=== PATIENT | female | born 1950 | race Caucasian/White ===

== ENCOUNTER 2025-09-18 09:02 | Emergency (ER) | payer MEDICARE, SELFPAY ==
--- NOTE | ~2025-09-18 | CT_ITS ---
CT abdomen pelvis w con Clinical History: vomiting . Comparison: None Technique: Axial images lung bases to symphysis pubis IV contrast information not listed in PACS Coronal, sagittal reformats CT images acquired with automatic exposure control for dose reduction DLP: 258 mGy-cm Findings: Lung bases: Atelectasis. Visualized heart and pericardium: Unremarkable. Liver: Enlarged. Steatosis. Gallbladder: Unremarkable. Spleen: Unremarkable. Pancreas: Unremarkable. Adrenal glands: Small probable adenoma right side. Kidneys: Right kidney- No hydronephrosis. No renal stones. Left kidney- No hydronephrosis. No renal stones. Distal esophagus/stomach: Apparent gastric antral wall thickening but under distended. Small bowel loops: Normal caliber and wall thickness. Colon: Diverticula. Apparent wall thickening ascending loops but under distended. Appendix not seen. Nodes: No enlarged nodes. Peritoneum: No ascites. No free air. Urinary bladder: Unremarkable. Uterus: Unremarkable. Adnexa: No masses. Bones: No acute bony abnormality. Soft tissues: Unremarkable. Aorta: No aneurysm or dissection. IVC: Unremarkable. Main portal vein/SMV/splenic vein: Patent. IMPRESSION: 1. Gastric antritis not excluded. 2. Colitis ascending loops not excluded. 3. No other acute abnormality. Reviewed, dictated and finalized at location R.
[2025-09-18 08:58] VITALS: BP 110/80; PULSE 67; RESP 14; O2SAT 92
[2025-09-18] MEDS: ONDANSETRON INJ 4 MG/2 ML VIAL IV PUSH (09:41)
[2025-09-18] MEDS: SODIUM CHLORIDE 0.9% IV 1,000 ML 999 ML IV CONT (09:42)
[2025-09-18 09:53] VITALS: BP 111/61; PULSE 84; RESP 15; TEMP 36.4; O2SAT 97
--- OUTSIDE RECORDS SUMMARY | 2025-09-18 10:00 | XMS_ITS | Clinical Summary ---
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 [address] [address] Basophil abs 0.03 0.00 - 0.10 K/cumm [facility] Comment:Testing performed by : [address] [address] Neutrophil pct 36.6 % [facility] Comment: Interpretive Data Percent cell count reference ranges are not reported, since discordance with absolute values may lead to misinterpretation of CBC data. Current Interpretive Data was last revised on 2018. Testing performed by: [address] [address] Imm gran pct 0.0 % [facility] Comment: Interpretive Data Percent cell count reference ranges are not reported, since discordance with absolute values may lead to misinterpretation of CBC data. Current Interpretive Data was last revised on 2018. Testing performed by: [address] [address] Lymphocyte pct 47.2 % [facility] Comment: Interpretive Data Percent cell count reference ranges are not reported, since discordance with absolute values may lead to misinterpretation of CBC data. Current Interpretive Data was last revised on 2018. Testing performed by: [address] [address] Monocyte pct 9.3 % BHAVIK Comment: Interpretive Data Percent cell count reference ranges are not reported, since discordance with absolute values may lead to misinterpretation of CBC data. Current Interpretive Data was last revised on 2018. Testing performed by: [address] [address] Eosinophil pct 6.1 % BHAVIK GAUTHIER Comment: Interpretive Data Percent cell count reference ranges are not reported, since discordance with absolute values may lead to misinterpretation of CBC data. Current Interpretive Data was last revised on 2018. Testing performed by: [address] [address] Basophil pct 0.8 % BHAVIK GAUTHIER Comment: Interpretive Data Percent cell count reference ranges are not reported, since discordance with absolute values may lead to misinterpretation of CBC data. Current Interpretive Data was last revised on 2018. Testing performed by: [address] [address] Blood 08/13/2025 7:05 PM CDT 08/13/2025 7:08 PM CDT us Julius Orr MD LAB BLOOD ORDERABLES F inal Result [facility] [address] [facility] Department [place] [address] * (ABNORMAL) CBC with auto differential (08/13/2025 7:05 PM CDT) WBC 3.77(L) 3.80 - 9.90 K/cumm Comment:Testing performed by : [address] [address] Hgb 12.3 11.9 - 15.5 g/dL BHAVIK GAUTHIER Comment:Testing performed by : [address] [address] Hct 36.9 35.6 - 45.5 % BHAVIK GAUTHIER Comment:Testing performed by : [address] [address] Plt 225 150 - 400 K/cumm BHAVIK GAUTHIER Comment:Testing performed by : [address] [address] MPV 9.4 9.1 - 12.3 fL BHAVIK GAUTHIER Comment:Testing performed by : [address] [address] RBC 4.36 3.90 - 5.20 M/cumm BHAVIK GAUTHIER Comment:Testing performed by : [address] [address] MCV 84.6 81.3 - 96.4 fL BHAVIK Comment:Testing performed by : [address] [address] MCH 28.2 27.1 - 33.3 pg BHAVIK Comment:Testing performed by : [address] [address] MCHC 33.3 32.3 - 35.7 g/dL BHAVIK Comment:Testing performed by : [address] [address] RDW CV 12.8 11.1 - 14.9 % BHAVIK Comment:Testing performed by : [address] [address] RDW SD 38.9 35.7 - 48.1 fL BHAVIK Comment:Testing performed by : [address] [address] NRBC abs 0.00 0.00 - 0.01 K/cumm BHAVIK Comment:Testing performed by : [address] [address] Blood 08/13/2025 7:05 PM CDT 08/13/2025 7:08 PM CDT us Julius Orr MD LAB BLOOD ORDERABLES F inal Result [facility] [address] [facility] Department of Laboratories [place], [place] [id number] * Comprehensive metabolic panel (08/13/2025 7:05 PM CDT) Sodium 142 135 - 145 mmol/L Comment:Testing performed by : [address], [place]., [address] Potassium, pl 3.5 3.3 - 4.9 mmol/L [facility] Comment: Hemolyzed; Potassium value may be falsely elevated by as much as 1.0 mmol/L. Suggest redraw and reanalysis. Testing performed by: [address], [place]., [address] Chloride 106 97 - 110 mmol/L [facility] Comment:Testing performed by : [address], [place]., [address] CO2 24 22 - 32 mmol/L [facility] Comment:Testing performed by : [address], [place]., [address] Anion gap 12 2 - 15 mmol/L [facility] Comment:Testing performed by : [address], [place]., [address] BUN 12 6 - 25 mg/dL [facility] Comment:Testing performed by : [address], [place]., [address] Creatinine 0.86 0.60 - 1.10 mg/dL [facility] Comment:Testing performed by : [address], [place]., [address] Glucose 94 70 - 199 mg/dL [facility] Comment: Interpretive Data Fasting glucose >/= 126 mg/dl is diagnostic for diabetes. Fasting is defined as no caloric intake for at least 8 hours. Fasting glucose between 100 mg/dl to 125 mg/dl is diagnostic of prediabetes. In a patient with classic symptoms of hyperglycemia or hyperglycemic crisis, a random glucose >/= 200 mg/dl is diagnostic for diabetes. In the absence of unequivocal hyperglycemia, results should be confirmed by repeat testing. The classification and Diagnosis of Diabetes Diabetes Care 202; 46: S19-S40. Current interpretive data was last revised 2022. Testing performed by: [address], [place]., [address] Calcium 9.5 8.5 - 10.3 mg/dL [facility] Comment:Testing performed by : [address], [place]., [address] Bilirubin, total 0.4 0.1 - 1.2 mg/dL BHAVIK Comment:Testing performed by : [facility], [address] [place] [address]., [address] Protein, pl 7.1 6.5 - 8.5 g/dL BHAVIK Comment:Testing performed by : [address] [address] Albumin 4.2 3.5 - 5.0 g/dL BHAVIK Comment:Testing performed by : [address] [address] Alk phos 75 40 - 130 Units/L BHAVIK Comment:Testing performed by : [address], [address] ALT 9 7 - 45 Units/L BHAVIK Comment:Testing performed by : [address] [address] AST 21 10 - 45 Units/L BHAVIK Comment: Hemolyzed; result may be falsely elevated Testing performed by: [address] [address] Blood 08/13/2025 7:05 PM CDT 08/13/2025 7:08 PM CDT us Julius Orr MD LAB BLOOD ORDERABLES F inal Result [facility] [address] [facility] Department of Laboratories [place], [place] [id number] * Troponin T high-sensitivity 6-hour (07/17/2025 5:15 AM CDT) Trop T hs <6 <=14 ng/L Comment: Interpretive Data For further hscTnT resources including the diagnostic algorithm and an aid in interpretation, copy and paste this link: https://nrl.testcatalog.org/show/hsTrop Current Interpretive Data last revised 2020. Trop T hs delta 0 ng/L BHAVIK Trop T hs interp Insignificant [facility] Blood 07/17/2025 5:15 AM CDT 07/17/2025 5:29 AM CDT Theodore Oswald DO LAB BLOOD ORDERABLES Final Res ult Performing Organization Address [facility] de Phone Number BHAVIK [address] [place] [address] * eGFR (07/17/2025 5:15 AM CDT) Pathologist [facility] eGFR 90 >=60 mL/min/1. 73 m2 Comment: Interpretive Data Reference Interval Normal >/= 90 mL/min/1.73m2 Mildly decreased* 60 - 89 mL/min/1.73m2 Mildly to moderately decreased 45 - 59 mL/min/1.73m2 Moderately to severely decreased 30 - 44 mL/min/1.73m2 Severely decreased 15 - 29 mL/min/1.73m2 Kidney Failure < 15 mL/min/1.73m2 *Relative to young adult level Estimated glomerular filtration rate is determined by the 2020 CKD-EPI equation recommended by the National Kidney Foundation (A Unifying Approach to GFR Estimation: Recommendations of the NKF-ASK Task Force on Reassessing the Inclusion of Race in Diagnosing Kidney Disease, JASN 2020). The CKD-EPI equation should not be used for patients with unstable renal function and has not been validated in children and those over 70. Current interpretive data was last reviewed 2021. Blood 07/17/2025 5:15 AM CDT 07/17/2025 5:29 AM CDT us Henrik Booth MD LAB BLOOD ORDERABLES Final Res ult Performing Organization Address [facility] Co de Phone Number BHAVIK [address] Department [place] [address] * (ABNORMAL) CBC without differential (07/17/2025 5:15 AM CDT) [facility] WBC 3.72(L) 3.80 - 9.90 K/cumm Hgb 12.5 11.9 - 15.5 g/dL [facility] Hct 38.0 35.6 - 45.5 % [facility] Plt 171 150 - 400 K/cumm [facility] MPV 9.8 9.1 - 12.3 fL [facility] RBC 4.30 3.90 - 5.20 M/cumm [facility] MCV 88.4 81.3 - 96.4 fL [facility] MCH 29.1 27.1 - 33.3 pg [facility] MCHC 32.9 32.3 - 35.7 g/dL [facility] RDW CV 13.2 11.1 - 14.9 % [facility] RDW SD 42.5 35.7 - 48.1 fL [facility] NRBC abs 0.00 0.00 - 0.01 K/cumm [facility] Blood 07/17/2025 5:15 AM CDT 07/17/2025 5:29 AM CDT us Henrik Booth MD LAB BLOOD ORDERABLES Final Res ult [facility] [address] [facility] Department [place] [address] * Basic metabolic panel (07/17/2025 5:15 AM CDT) Sodium 141 135 - 145 mmol/L Potassium, pl 3.7 3.3 - 4.9 mmol/L [facility] Chloride 109 97 - 110 mmol/L [facility] CO2 23 22 - 32 mmol/L [facility] Anion gap 9 2 - 15 mmol/L [facility] BUN 11 6 - 25 mg/dL [facility] Creatinine 0.69 0.60 - 1.10 mg/dL [facility] Glucose 94 70 - 199 mg/dL [facility] Comment: Interpretive Data Fasting glucose >/= 126 mg/dl is diagnostic for diabetes. Fasting is defined as no caloric intake for at least 8 hours. Fasting glucose between 100 mg/dl to 125 mg/dl is diagnostic of prediabetes. In a patient with classic symptoms of hyperglycemia or hyperglycemic crisis, a random glucose >/= 200 mg/dl is diagnostic for diabetes. In the absence of unequivocal hyperglycemia, results should be confirmed by repeat testing. The classification and Diagnosis of Diabetes Diabetes Care 2021; 46: S19-S40. Current interpretive data was last revised 2022. Calcium 9.0 8.5 - 10.3 mg/dL [facility] Blood 07/17/2025 5:15 AM CDT 07/17/2025 5:29 AM CDT Henrik Booth MD LAB BLOOD ORDERABLES Final Res ult Performing Organization Address [facility] Co de Phone Number [address] [address] * Troponin T high-sensitivity 4-hour (07/17/2025 3:42 AM CDT) Trop T hs <6 <=14 ng/L Comment: Interpretive Data For further hscTnT resources including the diagnostic algorithm and an aid in interpretation, copy and paste this link: https://nrl.[email or web address]/show/[email or web address] Current Interpretive Data last revised 2020. Trop T hs delta 0 ng/L [facility] Trop T hs interp Insignificant [facility] Blood 07/17/2025 3:42 AM CDT 07/17/2025 3:51 AM CDT Theodore Oswald DO LAB BLOOD ORDERABLES Final Res ult Performing Organization Address [facility] de Phone Number [address] [address] * Troponin T high-sensitivity 2-hour (07/17/2025 1:36 AM CDT) Trop T hs <6 <=14 ng/L Comment: Interpretive Data For further hscTnT resources including the diagnostic algorithm and an aid in interpretation, copy and paste this link: https://nrl.[email or web address]/show/[email or web address] Current Interpretive Data last revised 2020. Trop T hs delta 0 ng/L [facility] Trop T hs interp Insignificant [facility] Blood 07/17/2025 1:36 AM CDT 07/17/2025 1:37 AM CDT Theodore Oswald DO LAB BLOOD ORDERABLES Final Res ult Performing Organization Address [facility] de Phone Number BHAVIK [address] [address] * (ABNORMAL) Urinalysis reflex to microscopic and culture Urine (07/16/2025 11:58 PM CDT) Color, ur Yellow Yellow Clarity, ur Clear Clear [facility] Specific gravity, ur 1.017 1.003 - 1.030 [facility] pH, urine 7.0 [facility] Comment: Interpretive Data U rine pH is affected by diet, medications, systemic acid-base disturbances, and renal tubular function. pH may affect urinary stone formation. For example, urine pH below 6.0 may help reduce the tendency for calcium phosphate stones and pH greater than 6.0 may reduce the tendency for uric acid stone formation. Source: [facility] Current Interpretive Data was last revised on 2017 Protein, ur ql Negative Negative [facility] Glucose, ur ql Negative Negative [facility] Ketones, ur Trace Negative [facility] Bilirubin, ur Negative Negative [facility] Blood, ur Negative Negative [facility] Urobilinogen, ur 2.0(A) <2.0 mg/dL [facility] Nitrite, ur Negative Negative [facility] Leukocyte esterase, ur Negative Negative [facility] UA reflex comment Reflex conditions for microscopic UA and culture not met. [facility] Urine 07/16/2025 11:5 8 PM CDT 07/17/2025 12:01 AM CDT [facility] - GENERAL ORD ERABLES Final Result Performing Organization Address [facility] Co de Phone Number BHAVIK [facility] [place] [address] * Troponin T high-sensitivity series (baseline, 2hr, 4hr, 6hr) (07/16/2025 11:31 PM CDT) Trop T hs <6 <=14 ng/L Comment: Interpretive Data For further hscTnT resources including the diagnostic algorithm and an aid in interpretation, copy and paste this link: https://nrl.testcatalog.org/show/hsTrop Current Interpretive Data last revised 2020. Blood 07/16/2025 11:3 1 PM CDT 07/16/2025 11:34 PM CDT Theodore Oswald DO LAB BLOOD ORDERABLES Final Res ult Performing Organization Address [facility]/ZIP Co de Phone Number BHAVIK [address] [place] [address] * Influenza A/B, RSV, and COVID-19 PCR Nasopharyngeal (07/16/2025 11:31 PM CDT) Pathologist [facility] COVID-19 RNA Negative Negative Influenza A RNA Negative Negative [facility] Influenza B RNA Negative Negative [facility] RSV RNA Negative Negative [facility] Comment: Interpretive data: Testing performed by [facility]. This test is performed using the [employer] Xpert Xpress CoV-2/Flu/RSV plus assay. This is a multiplex, real-time reverse transcriptase PCR assay intended for the qualitative detection of nucleic acid from SARS-CoV-2, influenza A, influenza B, and respiratory syncytial virus. This assay has been cleared by the [place] Food and Drug administration. The performance characteristics have been verified by the [facility]. Results must be considered in the clinical context, and a negative result does not rule out infection. Interpretive Data last revised 2023 Nasopharyngeal 07/16/2025 11 :31 PM CDT 07/16/2025 11:34 PM CDT Narrative [facility] - 07/17/2025 12:18 AM CDT Is the Patient experiencing symptoms consistent with COVID?->Yes Theodore Oswald DO LAB MICROBIOLOGY - GENERAL ORD ERABLES Final Result Performing Organization Address [facility]/ZIP Co de Phone Number [place] [id number] [facility] [address] [place] [address] * XR Chest 1 View (07/16/2025 10:54 PM CDT) Anatomical Region Laterality Modality Body, Chest N/A Computed Radiogr aphy 07/16/2025 11:3 1 PM CDT Narrative 07/16/2025 11:31 PM CDT EXAM DESCRIPTION: XR CHEST 1 VIEW REASON FOR STUDY: Mental status change, unknown cause BIBEMS from home for Left facial droop and altered mental status. LKW is 1600 today. Upon arrival, pt is A1-2, normally x4, known case of alzheimer and is on new medication Seroquel wherein she took her second dose [employer]. TECHNIQUE: Single radiographic view(s) of the chest. COMPARISON: None FINDINGS: LUNGS: No focal opacity, pleural effusion, or pneumothorax. HEART/MEDIASTINUM: Cardiac silhouette normal in size. Mediastinal and hilar contours appear normal. LINES/TUBES: None. BONES: No acute osseous abnormality. IMPRESSION: No acute cardiopulmonary abnormality. THIS IS AN ELECTRONICALLY VERIFIED FINAL REPORT 07/16/2025 11:31 PM - Electronically signed by Gregorio Dobbs M.D. KH T: Report ID: [id number] Reading Location: [id number] Procedure Note Gregorio Dobbs MD - 07/16/2025 EXAM DESCRIPTION: XR CHEST 1 VIEW REASON FOR STUDY: Mental status change, unknown cause BIBEMS from home for Left facial droop and altered mental status. LKWis 1600 today. Upon arrival, pt is A1-2, normally x4, known case of alzheimer and is on new medication Seroquel wherein she took her seconddose [employer]. TECHNIQUE: Single radiographic view(s) of the chest. COMPARISON: None FINDINGS: LUNGS: No focal opacity, pleural effusion, or pneumothorax. HEART/MEDIASTINUM: Cardiac silhouette normal in size. Mediastinal andhilar contours appear normal. LINES/TUBES: None. BONES: No acute osseous abnormality. IMPRESSION: No acute cardiopulmonary abnormality. THIS IS AN ELECTRONICALLY VERIFIED FINAL REPORT 07/16/2025 11:31 PM - Electronically signed by Gregorio Dobbs M.D. KH T: Report ID: [id number] Reading Location: [id number] us Theodore Slowik DO IMG XR PROCEDURES Final Result * ECG 12 lead (07/16/2025 10:35 PM CDT) Ventricular Rate EKG/Min 66 BPM [facility] Atrial Rate 66 BPM [facility] CO-Interval (MSEC) 150 ms [facility] QRS-Interval (MSEC) 86 ms [facility] QT-Interval (MSEC) 430 ms [facility] QTc 450 ms [facility] P [place] 58 degrees [facility] R [place] 36 degrees [facility] T [place] 20 degrees [facility] Diagnosis Normal sinus rhythm with sinus arrhythmia Possible Left atrial enlargement Borderline ECG No previous ECGs available Confirmed by HENRIK MCKEON M.D. ([id number]) on 07/21/2025 3:03:36 PM [facility] 07/16/2025 10:3 5 PM CDT 07/21/2025 3:03 PM CDT Theodore Darek BHAKTA ECG ORDERABLES Final Result [facility] * CT Stroke Head WO Contrast (07/16/2025 10:25 PM CDT) Anatomical Region Laterality Modality Head N/A Computed Tomogra phy 07/16/2025 10:3 3 PM CDT Narrative 07/16/2025 10:34 PM CDT EXAM DESCRIPTION: CT STROKE HEAD WO CONTRAST REASON FOR STUDY: Stroke, follow up, Stroke Code Stroke LKW 2000 tonight Confusion Hx: Alzheimer's TECHNIQUE: Axial images acquired through the brain without intravenous contrast. Images stored on PACS. Automated exposure control was used as a dose optimization technique for this examination. COMPARISON: 08/23/2020 FINDINGS: BRAIN: No hemorrhage, edema or mass effect. No recent infarct. Moderate diffuse atrophy of the brain is again noted. EXTRA-AXIAL SPACES: No fluid collections. No masses. CALVARIUM: No fracture. SINUSES/MASTOIDS: No fluid or mucosal thickening. ORBITS: No significant abnormality. OTHER: No other significant abnormality. IMPRESSION: No acute intracranial findings. THIS IS AN ELECTRONICALLY VERIFIED FINAL REPORT 07/16/2025 10:34 PM - Electronically signed by Gregorio Dobbs M.D. KH T: Report ID: [id number] Reading Location: [id number] Procedure Note Gregorio Dobbs MD - 07/16/2025 EXAM DESCRIPTION: CT STROKE HEAD WO CONTRAST REASON FOR STUDY: Stroke, follow up, Stroke Code Stroke LKW 2000 tonight Confusion Hx: Alzheimer's TECHNIQUE: Axial images acquired through the brain without intravenous contrast. Images stored on PACS. Automated exposure control was used asa dose optimization technique for this examination. COMPARISON: 08/23/2020 FINDINGS: BRAIN: No hemorrhage, edema or mass effect. No recent infarct. Moderate diffuse atrophy of the brain is again noted. EXTRA-AXIAL SPACES: No fluid collections. No masses. CALVARIUM: No fracture. SINUSES/MASTOIDS: No fluid or mucosal thickening. ORBITS: No significant abnormality. OTHER: No other significant abnormality. IMPRESSION: No acute intracranial findings. THIS IS AN ELECTRONICALLY VERIFIED FINAL REPORT 07/16/2025 10:34 PM - Electronically signed by Gregorio Dobbs M.D. KH T: Report ID: [id number] Reading Location: [id number] Theodore Oswald DO IMG CT PROCEDURES Final Result * eGFR (07/16/2025 10:23 PM CDT) eGFR 90 >=60 mL/min/1. 73 m2 Comment: Interpretive Data Reference Interval Normal >/= 90 mL/min/1.73m2 Mildly decreased* 60 - 89 mL/min/1.73m2 Mildly to moderately decreased 45 - 59 mL/min/1.73m2 Moderately to severely decreased 30 - 44 mL/min/1.73m2 Severely decreased 15 - 29 mL/min/1.73m2 Kidney Failure < 15 mL/min/1.73m2 *Relative to young adult level Estimated glomerular filtration rate is determined by the 2020 CKD-EPI equation recommended by the National Kidney Foundation (A Unifying Approach to GFR Estimation: Recommendations of the NKF-ASK Task Force on Reassessing the Inclusion of Race in Diagnosing Kidney Disease, JASN 2020). The CKD-EPI equation should not be used for patients with unstable renal function and has not been validated in children and those over 70. Current interpretive data was last reviewed 2021. Blood 07/16/2025 10:2 3 PM CDT 07/16/2025 10:27 PM CDT us Juanito Miranda MD LAB BLOOD ORDERABLE S Final Result [facility] [address] [facility] Department [place] [address] * Differential, auto (07/16/2025 10:23 PM CDT) Neutrophil abs 1.74 1.50 - 6.50 K/cumm Imm gran abs 0.00 0.00 - 0.10 K/cumm [facility] Lymphocyte abs 0.83 0.80 - 3.30 K/cumm [facility] Monocyte abs 0.23 0.20 - 0.80 K/cumm [facility] Eosinophil abs 0.04 0.00 - 0.50 K/cumm [facility] Basophil abs 0.03 0.00 - 0.10 K/cumm [facility] Neutrophil pct 60.7 % [facility] Comment: Interpretive Data Percent cell count reference ranges are not reported, since discordance with absolute values may lead to misinterpretation of CBC data. Current Interpretive Data was last revised on 2018. Imm gran pct 0.0 % [facility] Comment: Interpretive Data Percent cell count reference ranges are not reported, since discordance with absolute values may lead to misinterpretation of CBC data. Current Interpretive Data was last revised on 2018. Lymphocyte pct 28.9 % [facility] Comment: Interpretive Data Percent cell count reference ranges are not reported, since discordance with absolute values may lead to misinterpretation of CBC data. Current Interpretive Data was last revised on 2018. Monocyte pct 8.0 % [facility] Comment: Interpretive Data Percent cell count reference ranges are not reported, since discordance with absolute values may lead to misinterpretation of CBC data. Current Interpretive Data was last revised on 2018. Eosinophil pct 1.4 % [facility] Comment: Interpretive Data Percent cell count reference ranges are not reported, since discordance with absolute values may lead to misinterpretation of CBC data. Current Interpretive Data was last revised on 2018. Basophil pct 1.0 % [facility] Comment: Interpretive Data Percent cell count reference ranges are not reported, since discordance with absolute values may lead to misinterpretation of CBC data. Current Interpretive Data was last revised on 2018. Blood 07/16/2025 10:2 3 PM CDT 07/16/2025 10:27 PM CDT us Juanito Miranda MD LAB BLOOD ORDERABLE S Final Result [place] [address] [facility] Department [place] [address] * (ABNORMAL) CBC with auto differential (07/16/2025 10:23 PM CDT) WBC 2.87(L) 3.80 - 9.90 K/cumm Hgb 11.7(L) 11.9 - 15.5 g/dL [facility] Hct 35.4(L) 35.6 - 45.5 % [facility] Plt 171 150 - 400 K/cumm [facility] MPV 10.1 9.1 - 12.3 fL [facility] RBC 4.10 3.90 - 5.20 M/cumm [facility] MCV 86.3 81.3 - 96.4 fL [facility] MCH 28.5 27.1 - 33.3 pg [facility] MCHC 33.1 32.3 - 35.7 g/dL [facility] RDW CV 13.2 11.1 - 14.9 % [facility] RDW SD 41.0 35.7 - 48.1 fL [facility] NRBC abs 0.00 0.00 - 0.01 K/cumm [facility] Blood Venous blood specimen / Unknown 07/16/2025 10:23 PM CDT 07/16/2025 10:27 PM CDT Narrative [facility] - 07/16/2025 10:30 PM CDT Potential Stroke Patient Theodore Oswald Kaazing LAB BLOOD ORDERABLES Final Res ult Performing Organization Address [facility] Co de Phone Number BHAVIK [address] [place] [address] * aPTT (07/16/2025 10:23 PM CDT) aPTT 26 22 - 37 sec Comment: Interpretive data aPTT test has not been evaluated for monitoring heparin therapy. The anti-Xa is the preferred test. Current interpretive data was last revised on 2019. Blood Venous blood specimen / Unknown 07/16/2025 10:23 PM CDT 07/16/2025 10:27 PM CDT Narrative [facility] - 07/16/2025 10:39 PM CDT Potential stroke patient. Theodore Oswald Kaazing LAB BLOOD ORDERABLES Final Res ult Performing Organization Address [facility] de Phone Number BHAVIK [address] [address] * Protime-INR (07/16/2025 10:23 PM CDT) PT 13.80 12.00 - 14.60 sec INR 1.05 0.90 - 1.20 BHAVIK Comment: Interpretive data Oral anticoagulant therapeutic ranges: Venous thromboembolism prophylaxis or treatment: 2.0-3.0 CARDIOLOGY Standard range: 2.0-3.0 High-intensity range: 2.5-3.5 Refer to indication-specific guidelines for appropriate target ranges for prosthetic heart valve replacement. Current interpretive data was last revised on 2019. Blood 07/16/2025 10:2 3 PM CDT 07/16/2025 10:27 PM CDT Theodore Oswald DO LAB BLOOD ORDERABLES Final Res ult Performing Organization Address [facility] de Phone Number BHAVIK [address] [place] [address] * (ABNORMAL) Comprehensive metabolic panel (07/16/2025 10:23 PM CDT) Sodium 140 135 - 145 mmol/L Potassium, pl 4.3 3.3 - 4.9 mmol/L [facility] Comment:Hemolyzed; Potassium value may be falsely elevated by as much as 1.0 mmol/L. Suggest redraw and reanalysis. Chloride 105 97 - 110 mmol/L [facility] CO2 24 22 - 32 mmol/L [facility] Anion gap 11 2 - 15 mmol/L [facility] BUN 14 6 - 25 mg/dL [facility] Creatinine 0.69 0.60 - 1.10 mg/dL [facility] Glucose 133 70 - 199 mg/dL [facility] Comment: Interpretive Data Fasting glucose >/= 126 mg/dl is diagnostic for diabetes. Fasting is defined as no caloric intake for at least 8 hours. Fasting glucose between 100 mg/dl to 125 mg/dl is diagnostic of prediabetes. In a patient with classic symptoms of hyperglycemia or hyperglycemic crisis, a random glucose >/= 200 mg/dl is diagnostic for diabetes. In the absence of unequivocal hyperglycemia, results should be confirmed by repeat testing. The classification and Diagnosis of Diabetes Diabetes Care 2021; 46: S19-S40. Current interpretive data was last revised 2022. Calcium 8.9 8.5 - 10.3 mg/dL [facility] Bilirubin, total 0.4 0.1 - 1.2 mg/dL [facility] Protein, pl 6.2(L) 6.5 - 8.5 g/dL [facility] Albumin 3.5 3.5 - 5.0 g/dL [facility] Alk phos 62 40 - 130 Units/L [facility] ALT See Comment 7 - 45 [facility] Comment:Credited; Hemolyzed Specimen AST 27 10 - 45 Units/L [facility] Comment:Hemolyzed; result ma y be falsely elevated Blood Venous blood specimen / Unknown 07/16/2025 10:23 PM CDT 07/16/2025 10:27 PM CDT Narrative [facility] - 07/16/2025 11:31 PM CDT Potential Stroke Patient Theodore Arnelmya DO LAB BLOOD ORDERABLES Final Res ult Performing Organization Address City/[facility]/ZIP Co de Phone Number BHAVIK [address] [place] [address] * POCT glucose (07/16/2025 10:21 PM CDT) Glucose, POC 117 70 - 199 mg/dL Glucose comment 1 RN/MD Notified [facility] Glucose comment 2 Follow Protocol [facility] Blood 07/16/2025 10:2 1 PM CDT 07/16/2025 10:21 PM CDT Notinfile Unknown LAB POCT ORDERABLES - DEVICE F inal Result Performing Organization Address [facility] Co de Phone Number BHAVIK [address] [place] [address] * Screening Mammogram Bilateral W Srinivasa (11/28/2023 11:40 AM PHARM SPEC) Anatomical Region Laterality Modality Breast Bilateral Mammography Impressions 11/28/2023 11:49 AM PHARM SPEC BI-RADS ATLAS category (overall): 1 - Negative There is no mammographic evidence of malignancy. A 1 year screening mammogram is recommended. The patient has been or will be contacted. We recommend annual screening mammography for women at average risk of breast cancer beginning at age 40, based on guidelines of the [employer] (ACR Practice Parameter for the Performance of Screening and Diagnostic Mammography) and [employer]. For women with and elevated risk of breast cancer, please refer to the ACR Practice Parameter for specific screening recommendations. The patient will be entered into a reminder system with a target due date of 1 year for her next screening exam. Narrative 11/28/2023 11:49 AM PHARM SPEC Screening Mammogram Bilateral W Srinivasa: 11/28/23 The study was acquired using full field digital technology and interpreted from soft copy. 2D digital mammographic views, as well as 3D digital tomosynthesis were performed in the CC and MLO projections. CLINICAL: Screening mammogram, encounter for. No relevant medical history has been documented for this patient. No known family history of breast cancer. COMPARISONS: 11/27/2022 Screening Mammogram Bilateral W Srinivasa 11/21/2021 Screening Mammogram Bilateral W Srinivasa 10/27/2020 Screening Mammogram Bilateral W Srinivasa BREAST TISSUE: The breasts have scattered areas of fibroglandular density. FINDINGS: There is no new suspicious finding in either breast on mammogram. us Self Screening Mammogram IMG MAMMO PROCEDURES Fi nal Result * Dexa Axial Skeleton Bone Density 1 or 2 Site (11/21/2021 3:01 PM PHARM SPEC) Anatomical Region Laterality Modality Body N/A Mammography 11/21/2021 3:04 PM PHARM SPEC Narrative 11/21/2021 3:06 PM PHARM SPEC EXAM DESCRIPTION: DEXA AXIAL SKELETON BONE DENSITY 1 OR MORE SITES REASON FOR STUDY: 71 y/o year old F with given history of screening. 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 LEFT HIP: Current Total BMD is 0.736 g/cm2 T-score is -1.7 Most recent prior Total BMD was 0.749 g/cm2 There has been a 1.8% decrease in BMD which is not statistically significant. Current femoral neck BMD is 0.549 g/cm2 T-score is -2.7 IMPRESSION: Osteoporosis. FRAX not reported due to T-score of the femoral neck being at or below -2.5 REFERENCE: Bone mineral density: Normal (T-score above or = -1.0) Low bone mass (T-score between -1.0 and -2.5) replaces the previously used term osteopenia Osteoporosis (T-score = or below -2.5) Medical evaluation for secondary causes of low bone mineral density may be appropriate. FRAX is a World Health Organization validated fracture risk assessment tool that calculates a person's 10 year probability of a major osteoporosis related fracture and hip fracture. According to the National Osteoporosis Foundation guidelines, postmenopausal women and men age 50 or older with low bone mass and a 10 year probability of a major osteoporosis related fracture = or greater than 20% or a 10 year probability of a hip fracture = or greater than 3% should be considered for treatment. For further information, including treatment recommendations, please refer to the 2013 ISCD Official Positions (http://www.iscd.org) and the NOF's Clinician's Guide to Prevention and Treatment of Osteoporosis (http://www.nof.org/professionals/clinical-guidelines) THIS IS AN ELECTRONICALLY VERIFIED FINAL REPORT 11/21/2021 3:06 PM - Electronically signed by Earnestine Harley M.D. TB: TB Report ID: [id number] Reading Location: [facility] Procedure Note Earnestine Harley MD - 11/21/2021 EXAM DESCRIPTION: DEXA AXIAL SKELETON BONE DENSITY 1 OR MORE SITES REASON FOR STUDY: 71 y/o year old F with given history ofscreening. Surveyor Rod Helper/Model: ContentDJ A (S/N [id number]) CLINICAL INFORMATION: Current height: inches Maximum height: inches Weight: pounds Risk factors: Current height: 62 inches Maximum height: 62 inches Weight: 152 pounds Risk factors: None COMPARISON: 09/26/2018 FINDINGS: AP LUMBAR SPINE L1-L4: Total BMD is 0.897 g/cm2 T-score is -1.4 Most recent prior BMD was 0.848 g/cm2 There has been a 5.8% increase in BMD which is statisticallysignificant. LEFT HIP: Current Total BMD is 0.736 g/cm2 T-score is -1.7 Most recent prior Total BMD was 0.749 g/cm2 There has been a 1.8% decrease in BMD which is not statisticallysignificant. Current femoral neck BMD is 0.549 g/cm2 T-score is -2.7 IMPRESSION: Osteoporosis. FRAX not reported due to T-score of the femoral neck being at or below-2.5 REFERENCE: Bone mineral density: Normal (T-score above or = -1.0) Low bone mass (T-score between -1.0 and -2.5) replaces thepreviously used term osteopenia Osteoporosis (T-score = or below -2.5) Medical evaluation for secondary causes of low bone mineral density may be appropriate. FRAX is a World Health Organization validated fracture risk assessmenttool that calculates a person's 10 year probability of a major osteoporosisrelated fracture and hip fracture. According to the National OsteoporosisFoundation guidelines, postmenopausal women and men age 50 or older with low bonemass and a 10 year probability of a major osteoporosis related fracture = or greater than 20% or a 10 year probability of a hip fracture = or greaterthan 3% should be considered for treatment. For further information, including treatment recommendations, please referto the 2013 ISCD Official Positions (http://www.iscd.org) and the NOF's Clinician's Guide to Prevention and Treatment of Osteoporosis (http://www.nof.org/professionals/clinical-guidelines) THIS IS AN ELECTRONICALLY VERIFIED FINAL REPORT 11/21/2021 3:06 PM - Electronically signed by Earnestine Harley M.D. 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
[2025-09-18 10:02] LABS: Add Urine Microscopic? NO; Appearance Urine Clear (Clear); Glucose Urine UA Negative (Negative); Leukocyte Esterase Ur Negative LEU/UL (Negative); Nitrate Urine Negative (Negative); Specific Grav Ur 1.015 (1.001-1.035)
[2025-09-18 10:14] LABS: Hematocrit 41.4 % (37.0-47.0); Hemoglobin 13.0 g/dL (12.0-15.0); Immature Granulocyte Percent A 0.3 % (0-0.5); Lymphocytes Absolute Auto 1.09 K/mm3 (0.9-3.2); Mean Corpuscular HGB Conc 31.4 g/dl (32-36); Mean Corpuscular Hemoglobin 28.1 pg (26-34); Mean Corpuscular Volume 89.6 fl (80-100); Nucleated Red Blood Cells Absolute Auto 0.000 K/mm3 (0.0-0.012); Nucleated Red Blood Cells Perc 0.0 % (0.0-0.2); Platelet Count Result 168 k/mm3 (150-375); Red Blood Count 4.62 M/mm3 (4.2-5.4); White Blood Count 6.0 K/mm3 (4.5-10.0)
[2025-09-18 10:29] LABS: Alanine Aminotransferase 13 U/L (6-35); Albumin Level 4.1 g/dL (3.5-5.1); Alkaline Phosphatase 66 U/L (38-126); Anion Gap 6 mmol/L (4-12); Aspartate Amino Transferase 26 U/L (14-36); Bilirubin,Total 0.7 mg/dL (0.2-1.3); Blood Urea Nitrogen 19 mg/dL (7-17); Calcium 8.8 mg/dL (8.4-10.2); Carbon Dioxide 28 mmol/L (22-30); Chloride 107 mmol/L (98-107); Estimated CRCL calculation 41 ml/min; Estimated Glomerular Filt Rate > 60; Glucose 101 mg/dL (65-110); Lipase 124 U/L (23-300); Potassium 4.8 mmol/L (3.4-5.0); Sodium 141 mmol/L (137-145); Total Protein 7.3 g/dL (6.3-8.2)
--- NOTE | 2025-09-18 11:23 | ED_ITS ---
HPI - Nausea/Vomiting/Diarrhea General Chief complaint: Nausea/Vomiting/Diarrhea Stated complaint: n/v Time Seen by Provider: 09/18/25 09:13 History of Present Illness HPI Narrative: Patient is a 75-year-old female with history of dementia who presents ER with nausea vomiting. Sudden onset today. She denies any pain. No history of fever. No blood reported in her emesis. No diarrhea. Related Data Allergies Allergy/AdvReac Type Severity Reaction Status Date / Time No Known Allergies Allergy Verified 09/18/25 09:40 Review of Systems 2 Review of Systems: ROS unobtainable: Yes unobtainable due to mental status Exam 2 Narrative: GENERAL: Well-appearing, well-nourished, and in no acute distress. HEAD: Normocephalic, atraumatic. ENT: Mucous membranes moist. CHEST: Clear to auscultation. No respiratory distress. HEART: Regular rate and rhythm. Normal peripheral pulses. ABDOMEN: Soft, mild epigastric tenderness, nondistended. EXTREMITIES: Normal range of motion. No edema. SKIN: Warm, dry, no rash. NEURO: Alert and oriented x1. PSYCH: Normal mood and affect. Course Course Emergency Course: Discharge back to facility with PPI. No hypertension. No anemia. Vital Signs Vital signs: Vital Signs Pulse Rate 67 09/18/25 08:58 Respiratory Rate 14 09/18/25 08:58 Blood Pressure 110/80 09/18/25 08:58 Pulse Oximetry 92 09/18/25 08:58 Oxygen Delivery Room Air 09/18/25 08:58 Temperature 97.6 F 09/18/25 09:53 Pulse Rate 85 09/18/25 11:39 Respiratory Rate 14 09/18/25 11:39 Blood Pressure 146/99 H 09/18/25 11:39 Pulse Oximetry 100 09/18/25 11:39 Oxygen Delivery Room Air 09/18/25 08:58 MDM - Nausea/Vomiting/Diarrhea Lab Data Attestation: I reviewed the patient's lab results. 09/18/25 10:08 09/18/25 10:08 Labs: Lab Results 09/18/25 09/18/25 Range/Units 09:55 10:08 WBC 6.0 (4.5-10.0) K/mm3 RBC 4.62 (4.2-5.4) M/mm3 Hgb 13.0 (12.0-15.0) g/dL Hct 41.4 (37.0-47.0) % MCV 89.6 (80-100) fl MCH 28.1 (26-34) pg MCHC 31.4 L (32-36) g/dl RDW 12.7 (11.5-14.5) % Plt Count 168 (150-375) k/mm3 MPV 9.5 (7.4-10.4) fl Immature Gran % (Auto) 0.3 (0-0.5) % Neut % (Auto) 70.1 (45.5-73.1) % Lymph % (Auto) 18.3 (18.3-44.2) % Fountain % (Auto) 7.4 (2.6-8.5) % Eos % (Auto) 3.4 (0-4.4) % Baso % (Auto) 0.5 (0.2-1.2) % Lymph # (Auto) 1.09 (0.9-3.2) K/mm3 Fountain # (Auto) 0.4 (0.1-0.6) K/mm3 Eos # (Auto) 0.2 (0-0.3) K/mm3 Baso # (Auto) 0.0 (0.0-0.1) K/mm3 Abs Immat Gran (auto) 0.02 (0.00-0.031) K/mm3 Absolute Neuts (auto) 4.2 (1.3-6.7) K/mm3 Absolute Nucleated RBC 0.000 (0.0-0.012) K/mm3 Nucleated RBC % 0.0 (0.0-0.2) % Sodium 141 (137-145) mmol/L Potassium 4.8 (3.4-5.0) mmol/L Chloride 107 (98-107) mmol/L Carbon Dioxide 28 (22-30) mmol/L Anion Gap 6 (4-12) mmol/L BUN 19 H (7-17) mg/dL Creatinine 0.84 (0.7-1.0) mg/dL Estim Creat Clear Calc 41 ml/min Estimated GFR > 60 (59 - ) Glucose 101 (65-110) mg/dL Calcium 8.8 (8.4-10.2) mg/dL Total Bilirubin 0.7 (0.2-1.3) mg/dL AST 26 (14-36) U/L ALT 13 (6-35) U/L Alkaline Phosphatase 66 (38-126) U/L Total Protein 7.3 (6.3-8.2) g/dL Albumin 4.1 (3.5-5.1) g/dL Lipase 124 (23-300) U/L Urine Color Yellow (Yellow) Urine Appearance Clear (Clear) Urine pH 6.0 (5.0-9.0) Ur Specific Vaughan 1.015 (1.001-1.035) Urine Protein Negative (Negative) mg/dL Urine Glucose (UA) Negative (Negative) mg/dL Urine Ketones Negative (Negative) mg/dL Ur Blood (Man) Negative (Negative) Urine Nitrate Negative (Negative) Urine Bilirubin Negative (Negative) Urine Urobilinogen 1.0 (<2.0) mg/dL Leukocyte Esterase Rfl Negative (Negative) DAMARIS/UL Imaging Data Radiologist's impression: ITS Impressions Abdomen/Pelvis CT 09/18/25 10:59 IMPRESSION: 1. Gastric antritis not excluded. 2. Colitis ascending loops not excluded. 3. No other acute abnormality. Discharge Plan Discharge Clinical Impression: Antritis of stomach Patient Disposition: Home Condition: Stable Instructions: GERD (Gastroesophageal Reflux Disease) (ED), Acute Nausea and Vomiting (ED) Additional Instructions: Return to the emergency department if you develop severe abdominal pain, severe nausea and vomiting to the point where you are unable to keep down fluids, if you develop chest pain or difficulty breathing, blood in your stool, dizziness or fainting, or if you develop any other new or concerning symptoms as these could be signs of more serious medical illness. Try to stay well hydrated. Patient Language: Sami Prescriptions: New pantoprazole 40 mg tablet,delayed release (DR/EC) 40 mg PO BID Qty: 28 0RF ondansetron 4 mg tablet,disintegrating 4 mg PO Q6H PRN (Reason: nausea and vomiting) Qty: 10 0RF Follow-up/Referrals: Makenna,Doris Bill DO [Primary Care Provider, Unknown] - 1 Week
[2025-09-18] MEDS: PANTOPRAZOLE SODIUM IV 40 MG VIAL IV PUSH (11:29)
[2025-09-18 11:39] VITALS: BP 146/99; PULSE 85; RESP 14; O2SAT 100
== END 2025-09-18 12:53 | disposition home or self-care (01) ==
PROVIDERS: Emergency Provider Emergency Medicine; PCP Internal Medicine
DX: K29.50 Unspecified chronic gastritis without bleeding (principal); F03.90 Unspecified dementia, unspecified severity, without behavioral disturbance, psychotic disturbance, mood disturbance, and anxiety
CPT/HCPCS: 36415; 74177; 80053; 81003; 83690; 85025; 96361; 96374; 96375; 99284; J2405; J2470; J7030; Q9967